=== PATIENT | male | born 1995 | race Caucasian/White ===

== ENCOUNTER 2017-04-20 18:02 | Emergency (ER) | payer OTHER ==
[~2017-04-20] VITALS: Ht 185.4 cm; Wt 76.3 kg
[~2017-04-20 18:02] MED LIST: ALPR1TAB3 PO
[2017-04-20 18:07] VITALS: PULSE 56; TEMP 36.4; O2SAT 98; Ht 185.4 cm; Wt 76.3 kg
[2017-04-20] MEDS ORDERED: AMOX500T3 PO (18:26)
[2017-04-20] MEDS ORDERED: ACET-749 PO (18:26)
--- NOTE | 2017-04-20 18:28 | EMERGENCY ROOM VISIT NOTE ---
ED Visit Note First contact with patient: 18:11 CHIEF COMPLAINT: Toothache HISTORY OF PRESENT ILLNESS: This 22-year-old male patient presented to the emergency department ambulatory complaining of pain in the left lower molar. The patient states that he was eating a sandwich last week when one of his left lower molars broke off. He has had significant pain when eating since then. He also reports that he has a throbbing pain at night. He rates his overall discomfort a 9/10. He did make an appointment for later this month with his dentist. Denies facial swelling or fever. The patient denies any discharge from the mouth. REVIEW OF SYSTEMS: A 6 system review of systems was completed with positives and pertinent negatives listed in the HPI. ALLERGIES: Latex MEDICATIONS: No chronic medications PMH: No significant past medical history. SOCIAL HISTORY: The patient lives locally with his aunt. Nonsmoker, denies alcohol use. PHYSICAL EXAM: Vitals are noted on the nurse's note and reviewed by myself. Vital signs stable. Temperature 36.4C orally. GENERAL: This is a 22-year-old male, in no acute distress, nondiaphoretic, well-developed well-nourished. Mouth: The left lower second molar is broken off and there is mild swelling of the surrounding gums. No discharge or signs of an abscess. The remainder of the pharynx and tonsils are without erythema, edema, or exudate. The airway is patent. There is no facial swelling, cervical or submandibular lymphadenopathy. The patient appears uncomfortable and in pain. The patient has overall average dental hygiene. EARS: External auditory canals clear, tympanic membranes pearly aranda without erythema or effusion bilaterally. ED COURSE: The patient was evaluated as above. He does have a broken off tooth and likely exposed nerve causing his pain. He will be placed on amoxicillin as there is some swelling of the surrounding gums. He will be given a short course of pain medication and was given dental wax to help with the pain. The [place] prescription drug monitoring program was queried and no red flags were identified. He was instructed to keep his follow-up appointment with the dentist. He should return here for worsening symptoms. MEDICATION RECONCILIATION: I attest that I have personally reviewed the patient' s current medication list. Blood pressure screening: Patient was found to have normal blood pressure on screening and does not require follow-up. DIAGNOSIS: Odontalgia Problem List Medical Problems: (1) Headache Status: Resolved (2) Pain In Limb Status: Resolved (3) Sprain Of Neck Status: Resolved Current/Historical Medications Scheduled Amoxicillin (Amoxil), 500 MG PO TID Scheduled PRN Acetaminophen/Codeine (Tylenol W/Codeine #3), 1-2 TABS PO Q4H PRN for Pain Allergies Coded Allergies: Latex (Verified Allergy, Unknown, ANAPHYLAXIS, 07/14/15) Vital Signs Date Time Temp Pulse Resp B/P (MAP) Pulse Ox O2 Delivery O2 Flow Rate FiO2 04/20/17 18:33 127/59 04/20/17 18:07 36.4 56 18 98 Room Air Medications Administered Medications (Trade) Dose Ordered Sig/Rosario Route Start Time Stop Time Status Last Admin Dose Admin Acetaminophen/ Codeine Phosphate (TYLENOL W/ CODEINE #3 Home Pack) 1 homepack UD ONCE PO 04/20/17 18:30 04/20/17 18:31 DC 04/20/17 18:33 1 HOMEPACK Amoxicillin (Amoxil 250MG Home Pack) 1 homepack UD ONCE PO 04/20/17 18:30 04/20/17 18:31 DC 04/20/17 18:33 1 HOMEPACK Departure Information Impression Primary Impression: Dentalgia Dispostion Home / Self-Care Condition GOOD Prescriptions Acetaminophen/Codeine (Tylenol W/Codeine #3) 300 Mg/30 Mg Tab 1-2 TABS PO Q4H Y for Pain, #15 TAB For Initial Treatment Prov: Chasity Lopez PA-C 04/20/17 Amoxicillin (AMOXIL) 500 Mg Tab 500 MG PO TID for 10 Days, #30 TAB Prov: Chasity Lopez PA-C 04/20/17 Referrals No Doctor, Assigned (PCP) Patient Instructions [facility] Additional Instructions You have been prescribed Tylenol with Codeine to be used for pain control. Take 1-2 tablets every 4-6 hours as needed for pain. This is a narcotic medication. You cannot drive or consume alcohol while on this medicine. This medicine should only be used for pain that cannot be controlled with over-the- counter pain medicines. For pain control, you can use the following [id number] medicines (if >12 yo): - Regular strength (325mg/tab) Tylenol (acetaminophen) 2 tabs every 4-6 hours as needed. Do not exceed 12 tablets in a 24 hour period. Avoid taking more than 4 grams (4000 mg) of Tylenol per day. This includes any other sources of acetaminophen you may take on a regular basis. - Regular strength (200 mg/tab) Advil (ibuprofen) 1-2 tabs every 4-6 hours as needed. Do not exceed a dose of 3200 mg per day. You were prescribed amoxicillin to be taken 3 times daily as needed. This is an antibiotic. All antibiotics have the potential to cause diarrhea. Stop this medication and contact a medical provider if you were to develop any significant adverse side effects including: wheezing, shortness of breath, passing out, vomiting, or a diffuse rash. Always take antibiotics as directed and COMPLETE the ENTIRE course regardless of the improvement of your symptoms. Follow-up with the dentist as scheduled.
[2017-04-20] MEDS ORDERED: AMOXICILLIN HOME PACK 250 MG/TAB PO ONE (18:30)
[2017-04-20] MEDS ORDERED: TYLENOL #3 HOME PACK PO ONE (18:30)
[2017-04-20 18:33] VITALS: BP 127/59
== END 2017-04-20 18:34 | disposition home or self-care (01) ==
LOC: C.EDB 18:03 → C.EDD 18:34
DX: K08.89 Other specified disorders of teeth and supporting structures (principal)

== ENCOUNTER 2017-04-28 14:21 | Emergency (ER) | payer OTHER ==
[~2017-04-28] VITALS: Ht 185.4 cm; Wt 75.3 kg
[~2017-04-28 14:21] MED LIST changes: +ACET-749 PO; -ALPR1TAB3 PO; +AMOX500T3 PO
[2017-04-28 14:32] VITALS: BP 129/74; PULSE 69; TEMP 36.7; O2SAT 98; Ht 185.4 cm; Wt 75.3 kg
--- NOTE | 2017-04-28 14:51 | EMERGENCY ROOM VISIT NOTE ---
ED Visit Note First contact with patient: 14:40 CHIEF COMPLAINT: Toothache HISTORY OF PRESENT ILLNESS: This 22-year-old male presents the ER with chief complaint of persistent left lower molar tooth pain. The patient was seen here 8 days ago for the same symptoms. He states since that time more of the tooth has broken off and today he thought the inner portion of his gums were more swollen. The patient has a dentist appointment on May 07. He has not tried to contact his family doctor for pain medication. The patient states he is out of the pain medication he was prescribed by the emergency room. He went to the pharmacy to try and get a refill knee: That he would need to come back to the emergency room. REVIEW OF SYSTEMS: 6 system review was performed and was negative unless stated otherwise in history of present illness. PMH: The patient is healthy; there is no significant medical or surgical history. SOCIAL HISTORY: Patient lives with his aunt. The patient denies any tobacco or alcohol use. PHYSICAL EXAM: Vital Signs: Were reviewed Reviewed Nurse's notes. GENERAL: 20- year-old white male appears in no acute distress. MENTAL Status: Alert and oriented 3. MOUTH: The tooth in question is very carious any portion of the tooth missing. And the gum is mildly swollen without any erythema. FACE: There is no facial swelling, NECK: No cervical or submandibular lymphadenopathy. EMERGENCY COURSE: The patient was evaluated. I discussed at length the patient returning here every 3 days for refill of pain medication. I told him this would be the last time we would prescribe pain medications for this tooth. He should contact his family doctor for pain medications until he is seen by his dentist. DIAGNOSIS: Dentalgia DISCHARGE INSTRUCTIONS & TREATMENT: Ibuprofen 600 mg every 6 hours with food for pain. Take Tylenol 3 as needed for more severe pain. Continue antibiotics as prescribed. Keep scheduled appointment with your dentist. Contact her family doctor for further pain control. Problem List Medical Problems: (1) Headache Status: Resolved (2) Pain In Limb Status: Resolved (3) Sprain Of Neck Status: Resolved Current/Historical Medications Scheduled Amoxicillin (Amoxil), 500 MG PO TID Scheduled PRN Acetaminophen/Codeine (Tylenol W/Codeine #3), 1-2 TABS PO Q4H PRN for Pain Allergies Coded Allergies: Latex (Verified Allergy, Unknown, ANAPHYLAXIS, 07/14/15) Vital Signs Date Time Temp Pulse Resp B/P (MAP) Pulse Ox O2 Delivery O2 Flow Rate FiO2 04/28/17 14:32 36.7 69 22 129/74 98 Room Air Departure Information Referrals No Doctor, Assigned (PCP) Patient Instructions [facility]
[2017-04-28] MEDS ORDERED: ACET-749 PO (14:53)
== END 2017-04-28 14:59 | disposition home or self-care (01) ==
LOC: C.EDB 14:22 → C.EDD 14:59
DX: K08.89 Other specified disorders of teeth and supporting structures (principal)